=== PATIENT | male | born 1965 | race Caucasian/White ===

== ENCOUNTER 2017-02-06 11:52 | Outpatient (CLI) | payer OTHER ==
[2015-05-16 19:14] VITALS: O2SAT 93
== END 2017-02-06 11:53 | disposition home or self-care (01) | DRG 554 ==
LOC: CONVCARE 11:52
PROVIDERS: ATTEND Orthopaedic Surgery
DX: M17.11 Unilateral primary osteoarthritis, right knee (principal)
CPT/HCPCS: 73564

== ENCOUNTER 2017-05-23 08:27 | Outpatient (CLI) | payer OTHER ==
[2015-05-16 19:14] VITALS: O2SAT 93
== END 2017-05-23 08:28 | disposition home or self-care (01) | DRG 554 ==
LOC: CONVCARE 08:27
PROVIDERS: ATTEND Orthopaedic Surgery
DX: M16.12 Unilateral primary osteoarthritis, left hip (principal)
CPT/HCPCS: 72170; 73502

== ENCOUNTER 2017-06-19 08:00 | Inpatient (IN) | payer OTHER ==
[2017-06-19] MEDS ORDERED: SCOPOLAMINE 1.5MG PATCH TD SCH (09:00)
[2017-06-19] MEDS ORDERED: LACTATED RINGERS 1,000 ML IV ONE (09:00)
[2017-06-19] MEDS ORDERED: BUPIVACAINE LIPOSOME 20 ML SUS ONE (09:50)
[2017-06-19] MEDS ORDERED: SODIUM CHLORIDE 20 ML 20 ML ONE (09:50)
[2017-06-19] MEDS ORDERED: TRANEXAMIC ACID 100 MG/ML SOL ONE (09:50)
[2017-06-19] MEDS ORDERED: LACTATED RINGERS 1,000 ML IV SCH (10:00)
[2017-06-19] MEDS ORDERED: CEFAZOLIN SODIUM 1 GM PDS ONE ×2 (11:01→18:11)
[2017-06-19] MEDS ORDERED: BISACODYL 10 MG SUP PR PRN (12:43)
[2017-06-19] MEDS ORDERED: TEMAZEPAM 15MG 15 MG CAP PO PRN (12:43)
[2017-06-19] MEDS ORDERED: SODIUM CHLORIDE 0.9% 500 ML 500 ML IV PRN (12:43)
[2017-06-19] MEDS ORDERED: ONDANSETRON 4 MG ODT BU PRN (12:43)
[2017-06-19] MEDS ORDERED: DIPHENHYDRAMINE 50 MG/ML SOL IV PRN (12:43)
[2017-06-19] MEDS ORDERED: FLEET ENEMA PR PRN (12:43)
[2017-06-19] MEDS ORDERED: ONDANSETRON HCL 4 MG/2 ML SOL IV PRN (12:43)
[2017-06-19] MEDS ORDERED: ALUMINUM/MAGNESIUM 30 ML SUS PO PRN (12:43)
[2017-06-19] MEDS ORDERED: MORPHINE SULFATE 10 MG/ML SOL IV PRN (12:43)
[2017-06-19] MEDS ORDERED: MAGNESIUM HYDROXIDE 30 ML SUS PO PRN (12:43)
[2017-06-19] MEDS ORDERED: DIAZEPAM 5 MG TAB PO PRN (12:43)
[2017-06-19] MEDS ORDERED: MORPHINE SULFATE 10 MG/ML SOL IM PRN (12:43)
[2017-06-19] MEDS: DEXTROSE/SALINE 0.45% 1,000 ML IV SCH (14:32)
[2017-06-19] MEDS: SODIUM CHLORIDE 0.9% FLUSH 10 ML SOL IV SCH ×2 (14:37→20:37)
[2017-06-19] MEDS: ACETAMINOPHEN 500 MG 500 MG TAB PO SCH ×3 (14:41→20:40)
[2017-06-19] MEDS: SULFASALAZINE 500 MG TAB PO SCH ×3 (14:41→20:40)
[2017-06-19] MEDS: OXYCODONE HYDROCHLORIDE 5 MG TAB PO PRN ×2 (17:30→20:46)
[2017-06-19] MEDS ORDERED: SODIUM CHLORIDE 0.9% 500 ML 500 ML IV ONE (17:56)
[2017-06-19] MEDS ORDERED: SODIUM CHLORIDE 0.9% 100 ML 100 ML IV ONE ×2 (18:11→18:17)
[2017-06-19] MEDS ORDERED: CEFAZOLIN SODIUM 1 GM PDS 3 GM in SODIUM CHLORIDE 0.9% 100 ML 100 ML IV SCH (18:46)
[2017-06-19] MEDS: CEFAZOLIN SODIUM 1 GM PDS 3 GM in SODIUM CHLORIDE 0.9% 100 ML 100 ML IV SCH (19:07)
[2017-06-19] MEDS ORDERED: SODIUM CHLORIDE 0.9% 1000ML 1,000 ML IV ONE ×2 (19:34→20:30)
[2017-06-19] MEDS ORDERED: SODIUM CHLORIDE 0.9% FLUSH 10 ML SOL IV PRN (19:37)
[2017-06-19] MEDS ORDERED: TRIAMCINOLONE 0.1% CREAM CRE TOP PRN (20:36)
[2017-06-19] MEDS: SENNOSIDES A AND B 8.6 MG TAB PO SCH (20:40)
[2017-06-19] MEDS: SIMVASTATIN 20 MG TAB PO SCH (20:41)
[2017-06-19] MEDS: DIAZEPAM 5 MG TAB PO SCH (20:46)
[2017-06-19] MEDS ORDERED: TRIAMCINOLONE 0.1% CREAM CRE TOP SCH (21:00)
[2017-06-20] MEDS: OXYCODONE HYDROCHLORIDE 5 MG TAB PO PRN ×6 (00:59→19:48)
[2017-06-20] MEDS: SODIUM CHLORIDE 0.9% FLUSH 10 ML SOL IV SCH ×4 (01:56→21:27)
[2017-06-20] MEDS ORDERED: SODIUM CHLORIDE 0.9% 500 ML 500 ML IV ONE (01:58)
[2017-06-20] MEDS ORDERED: CEFAZOLIN SODIUM 1 GM PDS ONE (02:28)
[2017-06-20] MEDS ORDERED: SODIUM CHLORIDE 0.9% 100 ML 100 ML IV ONE (02:29)
[2017-06-20] MEDS: CEFAZOLIN SODIUM 1 GM PDS 3 GM in SODIUM CHLORIDE 0.9% 100 ML 100 ML IV SCH (02:37)
[2017-06-20] MEDS: DEXTROSE/SALINE 0.45% 1,000 ML IV SCH (03:30)
[2017-06-20 07:22] LABS: MEAN CORPUSCULAR HGB CONC 33.7 gm/dl (32.0-36.0)
[2017-06-20] MEDS: FOLIC ACID 1 MG TAB PO SCH (08:34)
[2017-06-20] MEDS: PANTOPRAZOLE SODIUM 40 MG ECT PO SCH (08:35)
[2017-06-20] MEDS: SULFASALAZINE 500 MG TAB PO SCH ×4 (08:35→21:28)
[2017-06-20] MEDS: ACETAMINOPHEN 500 MG 500 MG TAB PO SCH ×4 (08:35→21:27)
[2017-06-20] MEDS: GEMFIBROZIL 600 MG TAB PO SCH (08:35)
[2017-06-20] MEDS: ALLOPURINOL 100 MG TAB PO SCH (08:36)
[2017-06-20] MEDS: RIVAROXABAN 10 MG TAB PO SCH (08:36)
[2017-06-20] MEDS: CHOLECALCIFEROL 1,000 IU TAB PO SCH (08:36)
[2017-06-20] MEDS: DIAZEPAM 5 MG TAB PO SCH ×4 (08:41→21:27)
[2017-06-20] MEDS ORDERED: LISINOPRIL 20 MG TAB PO SCH (09:00)
[2017-06-20] MEDS ORDERED: HYDROCHLOROTHIAZIDE 25 MG TAB PO SCH (09:00)
[2017-06-20] MEDS: SENNOSIDES A AND B 8.6 MG TAB PO SCH (21:27)
[2017-06-20] MEDS: SIMVASTATIN 20 MG TAB PO SCH (21:28)
[2017-06-21] MEDS: DEXTROSE/SALINE 0.45% 1,000 ML IV SCH (00:12)
[2017-06-21] MEDS: SODIUM CHLORIDE 0.9% FLUSH 10 ML SOL IV SCH ×4 (03:22→21:45)
[2017-06-21] MEDS: OXYCODONE HYDROCHLORIDE 5 MG TAB PO PRN ×3 (03:22→15:31)
[2017-06-21 07:55] LABS: MEAN CORPUSCULAR HGB CONC 35.7 gm/dl (32.0-36.0)
[2017-06-21] MEDS: DIAZEPAM 5 MG TAB PO SCH ×4 (08:29→21:45)
[2017-06-21] MEDS: SULFASALAZINE 500 MG TAB PO SCH ×4 (08:29→21:45)
[2017-06-21] MEDS: ACETAMINOPHEN 500 MG 500 MG TAB PO SCH ×4 (08:30→21:45)
[2017-06-21] MEDS: ALLOPURINOL 100 MG TAB PO SCH (08:30)
[2017-06-21] MEDS: FOLIC ACID 1 MG TAB PO SCH (08:30)
[2017-06-21] MEDS: GEMFIBROZIL 600 MG TAB PO SCH (08:30)
[2017-06-21] MEDS: PANTOPRAZOLE SODIUM 40 MG ECT PO SCH (08:31)
[2017-06-21] MEDS: RIVAROXABAN 10 MG TAB PO SCH (08:31)
[2017-06-21] MEDS: CHOLECALCIFEROL 1,000 IU TAB PO SCH (08:31)
[2017-06-21] MEDS: SENNOSIDES A AND B 8.6 MG TAB PO SCH (21:46)
[2017-06-21] MEDS: SIMVASTATIN 20 MG TAB PO SCH (21:47)
[2017-06-22] MEDS: SODIUM CHLORIDE 0.9% FLUSH 10 ML SOL IV SCH ×2 (06:46→12:48)
[2017-06-22 07:38] LABS: MEAN CORPUSCULAR HGB CONC 34.9 gm/dl (32.0-36.0)
[2017-06-22] MEDS: OXYCODONE HYDROCHLORIDE 5 MG TAB PO PRN ×2 (08:17→13:21)
[2017-06-22] MEDS: SULFASALAZINE 500 MG TAB PO SCH ×2 (08:24→12:33)
[2017-06-22] MEDS: DIAZEPAM 5 MG TAB PO SCH ×2 (08:24→12:33)
[2017-06-22] MEDS: ALLOPURINOL 100 MG TAB PO SCH (08:25)
[2017-06-22] MEDS: FOLIC ACID 1 MG TAB PO SCH (08:25)
[2017-06-22] MEDS: CHOLECALCIFEROL 1,000 IU TAB PO SCH (08:25)
[2017-06-22] MEDS: RIVAROXABAN 10 MG TAB PO SCH (08:25)
[2017-06-22] MEDS: ACETAMINOPHEN 500 MG 500 MG TAB PO SCH ×2 (08:25→12:33)
[2017-06-22] MEDS: PANTOPRAZOLE SODIUM 40 MG ECT PO SCH (08:25)
[2017-06-22] MEDS: GEMFIBROZIL 600 MG TAB PO SCH (08:26)
[2017-06-22 10:52] VITALS: BP 98/67; PULSE 102; RESP 20; TEMP 98.8; O2SAT 94
== END 2017-06-22 13:40 | disposition home or self-care (01) | DRG 470 ==
LOC: ACUTE CARE 08:27
PROVIDERS: ADMIT Orthopaedic Surgery; ATTEND Orthopaedic Surgery
PROC: F01ZBZZ Bed Mobility Assessment (ICD-10-PCS; 2017-06-19)
PROC: F01ZCZZ Transfer Assessment (ICD-10-PCS; 2017-06-19)
PROC: 0SRB04A Replacement of Left Hip Joint with Ceramic on Polyethylene Synthetic Substitute, Uncemented, Open Approach (ICD-10-PCS; principal; 2017-06-19 11:00)
PROC: 30233N1 Transfusion of Nonautologous Red Blood Cells into Peripheral Vein, Percutaneous Approach (ICD-10-PCS; 2017-06-20)
DX: M16.0 Bilateral primary osteoarthritis of hip (principal); I95.9 Hypotension, unspecified; K51.90 Ulcerative colitis, unspecified, without complications; Z96.642 Presence of left artificial hip joint; I10 Essential (primary) hypertension; M10.9 Gout, unspecified; D64.9 Anemia, unspecified
CPT/HCPCS: 36415; 73501; 73502; 82962; 85018; 85027; 94150; 94760; 99070; J0690; J1885; J2250; J2270; J2405; J2765; A6232; J2704; L1830; Q3014

== ENCOUNTER 2017-07-03 12:07 | Outpatient (CLI) | payer OTHER ==
[2017-06-22 10:52] VITALS: O2SAT 94
== END 2017-07-03 12:08 | disposition home or self-care (01) | DRG 556 ==
LOC: CONVCARE 12:07
PROVIDERS: ATTEND Orthopaedic Surgery
DX: M79.89 Other specified soft tissue disorders (principal); M79.605 Pain in left leg; Z96.642 Presence of left artificial hip joint

== ENCOUNTER 2017-07-31 07:49 | Outpatient (CLI) | payer OTHER ==
[2017-06-22 10:52] VITALS: O2SAT 94
== END 2017-07-31 07:50 | disposition home or self-care (01) | DRG 561 ==
LOC: CONVCARE 07:49
PROVIDERS: ATTEND Orthopaedic Surgery
DX: Z47.1 Aftercare following joint replacement surgery (principal); Z96.642 Presence of left artificial hip joint
CPT/HCPCS: 73501

== ENCOUNTER 2018-07-31 07:38 | Outpatient (CLI) | payer OTHER ==
[2017-06-22 10:52] VITALS: O2SAT 94
== END 2018-07-31 07:39 | disposition home or self-care (01) | DRG 566 ==
LOC: CONVCARE 07:38
PROVIDERS: ATTEND Orthopaedic Surgery
DX: Z96.642 Presence of left artificial hip joint (principal); Z47.1 Aftercare following joint replacement surgery
CPT/HCPCS: 73501